=== PATIENT | female | born 1960 | race Caucasian/White ===

== ENCOUNTER 2020-05-24 15:44 | Emergency (ER) | payer OTHER ==
[~2020-05-24] VITALS: Ht 182.9 cm; Wt 70.3 kg
[~2020-05-24 15:44] MED LIST: ASPI81TA45 PO; HYDR-3653 PO
--- NOTE | 2020-05-24 16:31 | NUR ---
PT COMES IN AFTER FALL OFF HORSE. STATES HER HORSE SLIPPED AND FELL. STATES SHE FELL ON HER SHOULDER. OBVIOUS DEFORMATATION/BRUISING TO RIGHT CLAVICLE. PROVIDER AT BEDSIDE FOR ASSESSMENT. MONITORS CONNECTED.
[2020-05-24] MEDS ORDERED: OXYcodone/APAP 5/325MG TABLET ONE (16:38)
[2020-05-24 16:57] VITALS: BP 121/74
[2020-05-24] MEDS ORDERED: OXYcodone/APAP 5/325MG TABLET PO ONE (17:00)
--- NOTE | 2020-05-24 17:13 | NUR ---
AT BEDSIDE. POC DISCUSSED. QUESTIONS ANSWERED.
== END 2020-05-24 18:16 | disposition home or self-care (01) ==
LOC: ED 16:40
DX: S42.021A Displaced fracture of shaft of right clavicle, initial encounter for closed fracture (principal); W18.30XA Fall on same level, unspecified, initial encounter; Y93.89 Activity, other specified; Y92.009 Unspecified place in unspecified non-institutional (private) residence as the place of occurrence of the external cause; Y99.8 Other external cause status
CPT/HCPCS: 99284

== ENCOUNTER 2021-02-04 12:21 | Outpatient (CLI) | payer BC | END 2021-02-04 23:59 | disposition home or self-care (01) | LOC: CFH 12:21 | PROVIDERS: ATTEND Family Medicine | DX: Z12.31 Encounter for screening mammogram for malignant neoplasm of breast (principal) | CPT/HCPCS: 77063; 77067 ==